=== PATIENT | male | born 1970 | race Caucasian/White ===

== ENCOUNTER → 2024-05-14 | Outpatient (CLI) | payer OTHER ==
[2024-05-14] MEDS: REGADENOSON 0.4 MG/5 ML PF SYG IVP ONE (13:10)
== END | disposition home or self-care (01) ==
LOC: SHCH 08:46
PROVIDERS: ATTEND Internal Medicine Cardiovascular Disease
DX: R07.9 Chest pain, unspecified (principal)
CPT/HCPCS: 78452; 93017; J2785; A9500 ×2

== ENCOUNTER 2024-08-29 07:55 | Day surgery (SDC) | payer OTHER ==
[2024-08-27 14:36] VITALS: BP 126/65; PULSE 60; RESP 18; TEMP 97.2
[2024-08-27 14:40] LABS: BASOPHILS # (AUTO) 0.05 K/uL (0.00-0.20); BASOPHILS % (AUTO) 0.7 % (0.0-5.0); EOSINOPHILS # (AUTO) 0.21 K/uL (0.00-0.70); EOSINOPHILS % (AUTO) 3.1 % (0.0-8.0); HEMATOCRIT 45.6 % (42-54); IMMATURE GRANULOCYTE ABSOLUTE 0.05 K/uL (0-1); LYMPHOCYTES # (AUTO) 2.5 K/uL (1.0-4.8); LYMPHOCYTES % (AUTO) 36.8 % (21.0-51.0); MEAN CORPUSCULAR HEMOGLOBIN 28.7 pg (27.0-33.0); MEAN CORPUSCULAR HGB CONC 33.1 g/dL (32.0-36.0); MEAN CORPUSCULAR VOLUME 86.5 fL (79-99); MONOCYTES # (AUTO) 0.5 K/uL (0.1-1.0); MONOCYTES % (AUTO) 7.4 % (3.0-13.0); NEUTROPHILS # (AUTO) 3.5 K/uL (1.8-7.7); NEUTROPHILS % (AUTO) 51.3 % (40.0-77.0); PLATELET COUNT (AUTO) 266 K/uL (130-400); RED BLOOD CELL COUNT(AUTO) 5.27 MIL/uL (4.50-6.20); RED CELL DISTRIBUTION WIDTH 11.9 % (11.0-15.5); WHITE BLOOD COUNT (AUTO) 6.9 K/uL (4.8-10.8)
--- NOTE | 2024-08-27 14:41 | EKG ---
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
[2024-08-27 14:43] LABS: APPEARANCE,URINE CLEAR (CLEAR); BILIRUBIN,URINE NEGATIVE (NEGATIVE); COLOR,URINE YELLOW (YELLOW); GLUCOSE, URINE (UA) NEGATIVE (NEGATIVE); KETONES,URINE NEGATIVE (NEGATIVE); LEUKOCYTE ESTERASE ,URINE NEGATIVE Leu/uL (NEGATIVE); NITRATE,URINE NEGATIVE (NEGATIVE); PH,URINE 5.5 (5.0-8.0); PROTEIN,URINE 10 mg/dL (NEGATIVE); UROBILINOGEN,URINE 0.2 mg/dL (0.2-1.0)
[2024-08-27 14:45] LABS: ADD UA MICROSCOPIC YES
[2024-08-27 14:48] LABS: CREATININE 1.2 mg/dL (0.5-1.3); POTASSIUM 4.2 mmol/L (3.5-5.1)
[2024-08-27 14:49] LABS: MUCUS,URINE RARE LPF (None Seen); WBC,URINE 0-1 /HPF (0-1)
[2024-08-27 14:58] LABS: INR 1.03 (0.85-1.15); PROTHROMBIN TIME 11.1 SEC (9.6-11.6)
[2024-08-27 15:00] LABS: PARTIAL THROMBOPLASTIN TIME 25.6 SEC (26.3-35.5)
[2024-08-27 15:08] LABS: B-TYPE NATRIURETIC PEPTIDE < 5 pg/mL (0-100)
--- NOTE | 2024-08-27 15:34 | HMCIMG ---
CHEST 1VW HISTORY: Preop COMPARISON: None FINDINGS: A frontal projection of the chest was obtained. No acute pulmonary infiltrates is seen. The heart is normal in size. Prominent interstitial markings are seen. No evidence of aortic calcification is seen. IMPRESSION: 1. No acute pulmonary infiltrate is seen.
[2024-08-29] VITALS (16 sets, daily range): BP systolic 110–136; BP diastolic 52–83; PULSE 58–78; RESP 16; TEMP 97.3–98.1
[~2024-08-29] VITALS: Ht 180.3 cm; Wt 85.7 kg
[~2024-08-29 07:55] MED LIST: AEC81 PO; ATOR10 PO; METO-408 PO; TESTOSTERONE SQ
[2024-08-29] MEDS: 0.9%NACL 1000ML 1,000 ML IV SCH (08:29)
[2024-08-29] MEDS ORDERED: HEParin 10,000 UNIT/10ML (1,000 UNIT/ML) VIAL ONE (10:10)
[2024-08-29] MEDS ORDERED: LIDOCAINE HCL 400MG/20ML VIAL ONE (10:10)
[2024-08-29] MEDS ORDERED: IOHEXOL 350 MG/ML 100ML INFUS..BTL IV ONE (10:10)
[2024-08-29] MEDS ORDERED: HEParin-NS 1,000 UNIT/500 ML 1,000 ML IV ONE (10:11)
[2024-08-29] MEDS ORDERED: NITROGLYCERIN 50MG VIAL ONE (10:11)
[2024-08-29] MEDS ORDERED: MIDAZOLAM HCL 1 MG/ML 2ML VIAL ONE (10:23)
[2024-08-29] MEDS ORDERED: FENTanyl CITRate PF 50 MCG/1 ML 2ML VIAL ONE (10:23)
[2024-08-29] MEDS ORDERED: IOHEXOL-350 50ML VIAL IV ONE (10:28)
--- NOTE | 2024-08-29 10:49 | PRN ---
Cath Procedure Report CATH PROCEDURE REPORT CARDIAC CATHETERIZATION REPORT Date of Service: Aug 29, 2024 After informed consent the patient was prepped and draped in the usual fashion. He received a total of 15 cc of 2% xylocaine in the right inguinal area. A six Polish sheath was introduced into the right femoral artery using modified Seldinger technique. A Izaiah four right six Polish diagnostic catheter was advanced over guidewire to the aortic root. Wire was removed and catheter engaged into the [place] right coronary artery which was visualized in multiple planes. The catheter was removed. A Izaiah four left six Polish diagnostic catheter was then advanced over guidewire to the aortic root. Wire was removed and catheter engaged into left main coronary artery. The left coronary system was visualized multiple planes the catheter was removed. A pigtail catheter was then advanced over guidewire across the aortic valve. Wire was removed and hemodynamics measured. A pullback with continuous hemodynamic monitoring was performed and catheter was removed. A sheathogram performed and six Polish Angio-Seal closure device applied. The entire procedure was well tolerated wi thout complications. Findings: The right coronary artery is a right-dominant vessel free of obstruction gives rise to a normal PDA and a large branching posterolateral branch all free of obstruction. The left main coronary artery is free of obstruction. The left anterior descending is a small caliber vessel free of obstruction it gives rise to normal diagonal branches. The circumflex artery is free of obstruction and gives rise to normal obtuse marginal branches. There was no evidence of aortic stenosis. LV ejection fraction on the Cardiolite stress test was greater than 60%. In summary normal coronary arteries noncardiac symptoms. Report dictated by EMY Mead MD, MD Aug 29, 2024 10:49
--- NOTE | 2024-08-29 16:11 | NUR ---
14:57 PT WAS GETTING DRESSED AND ALERTED NURSE THAT PT WAS BLEEDING FROM ACCESS SITE WHEN GETTING DRESSED/ PUTTING ON SHOES. 14:58 APPLIED MANUAL PRESSURE AND APPLIED D STAT X 20 MINUTES AND WAS SUCCESSFUL IN STOPPING BLOOD LEAK, TOTAL OF ABOUT 3 TO 4 MLS OF ESTIMATED BLOOD LOSS. PT WAS AWAKE AND ORIENTED X3 THROUGH OUT EVENT, DENIES ANY PAIN, NO SIGN OF HEMATOMA, SWELLING OR BLEEDING. PT REMAINS IN OBSERVATION.
--- NOTE | 2024-08-29 16:45 | NUR ---
1630 AFTER BEING IN OBSERVATION FOR ABOUT 1 1/2 HRS, NO SWELLING, NO BLEEDING AND NO HEMATOMA NOTED TO ACCESS SITE ON RIGHT GROIN AREA. PT AND SPOUSE DISCHARGED WITH VERBAL AND WRITTEN INSTRUCTIONS AND VERBALIZED UNDERSTANDING
== END 2024-08-29 14:57 | disposition home or self-care (01) ==
LOC: DAH 07:55
PROVIDERS: ATTEND Internal Medicine Cardiovascular Disease
DX: I25.118 Atherosclerotic heart disease of native coronary artery with other forms of angina pectoris (principal); R94.39 Abnormal result of other cardiovascular function study; R07.9 Chest pain, unspecified; R00.2 Palpitations; I44.4 Left anterior fascicular block; E78.5 Hyperlipidemia, unspecified; Z79.899 Other long term (current) drug therapy
CPT/HCPCS: 80048; 83880; 85025; 85610; 85730; 81001; 36415; 71045; 93005; 93458; Q9965; C1894; C1760; J3490 ×2; J7030; J2250; J1644; Q9967; A4222; A4221; A4663; A4216; A4606; A4223 ×3; 99156; J3010